=== PATIENT | female | born 1970 ===

== ENCOUNTER 2021-06-10 11:55 | Outpatient (CLI) | payer OTHER | END 2021-06-10 11:56 | disposition home or self-care (01) | LOC: CSHMAMMO 11:55 | PROVIDERS: ATTEND Internal Medicine | DX: Z12.31 Encounter for screening mammogram for malignant neoplasm of breast (principal); N63.11 Unspecified lump in the right breast, upper outer quadrant; N63.14 Unspecified lump in the right breast, lower inner quadrant; N63.22 Unspecified lump in the left breast, upper inner quadrant | CPT/HCPCS: 77063; 77067 ==